=== PATIENT | male | born 1995 | race Caucasian/White ===

== ENCOUNTER 2018-10-01 09:06 | Outpatient (CLI) | payer OTHER ==
--- NOTE | 2018-10-01 17:46 | MRI Report ---
Reason: CERVICALGIA Procedure Date: 10/01/2018 Accession Number: [id number] / [id number] Procedure: MRI - Cervical Spine W/O CPT Code: FULL RESULT: EXAM: MRI CERVICAL SPINE WITHOUT CONTRAST EXAM DATE: 10/01/2018 09:35 AM. CLINICAL HISTORY: Cervicalgia. Limited range of motion and neck pain. Neck injury over one year ago. COMPARISONS: None. TECHNIQUE: Multiplanar, multisequence T1-weighted and fluid-sensitive sequences of the cervical spine without contrast. Other: None. FINDINGS: Neurologic Structures: The visualized posterior fossa structures are unremarkable. No signal abnormality in the visualized spinal cord. Alignment: No scoliosis or spondylolisthesis. Bone Marrow: No gross fractures or bone lesions. No marrow edema. Interspace Levels/Facets: C1-C2: Unremarkable. C2-C3: Unremarkable. C3-C4: Unremarkable. C4-C5: Unremarkable. C5-C6: Posterior 2 mm disk protrusion which contacts the anterior cervical cord without cord deformity or cord signal abnormality. Mild central spinal canal stenosis. Negative for foraminal stenosis. Mild disk degeneration. C6-C7: Unremarkable. C7-T1: Unremarkable. Musculature: Normal. No edema or fatty atrophy. Other: The paravertebral and prevertebral soft tissues are normal. IMPRESSION: Posterior 2 mm disk protrusion C5-C6 which contacts the anterior cervical cord without cord deformity or cord signal abnormality. Mild central spinal canal stenosis C5-C6. [facility]
== END 2018-10-01 09:07 | disposition home or self-care (01) ==
LOC: DI 09:06
PROVIDERS: ATTEND Radiology Diagnostic Radiology
DX: M50.222 Other cervical disc displacement at C5-C6 level (principal); M48.02 Spinal stenosis, cervical region
CPT/HCPCS: 72141